=== PATIENT | male | born 1980 | race Caucasian/White ===

== ENCOUNTER 2020-08-18 12:13 | Outpatient (REF) | payer OTHER, SELFPAY ==
[2020-08-18 13:01] LABS: COVID-19 Test Negative (Negative)
== END 2020-08-18 12:14 | disposition home or self-care (01) ==
LOC: HO.LAB 12:13
PROVIDERS: Visit Provider Internal Medicine
DX: Z20.828 Contact with and (suspected) exposure to other viral communicable diseases (principal)
CPT/HCPCS: 87635; C9803

== ENCOUNTER 2020-09-21 07:52 | Outpatient (REF) | payer OTHER, SELFPAY ==
[2020-09-21 08:11] LABS: COVID-19 Test Positive (Negative)
== END 2020-09-21 07:53 | disposition home or self-care (01) ==
LOC: HO.EMPCOV 07:52
PROVIDERS: Visit Provider Internal Medicine
DX: Z20.828 Contact with and (suspected) exposure to other viral communicable diseases (principal)
CPT/HCPCS: 87635; C9803

== ENCOUNTER 2020-12-16 09:15 | Outpatient (REF) | payer OTHER, SELFPAY ==
[2020-12-16 12:30] LABS: Influenza A PCR NEGATIVE (Negative); Influenza B PCR NEGATIVE (Negative); Resp Syncy Virus RNA Qual PCR NEGATIVE (Negative); SARS COV2 PCR INHOUSE NEGATIVE (Negative)
== END 2020-12-16 09:16 | disposition home or self-care (01) ==
LOC: HO.LAB 09:15
PROVIDERS: Visit Provider Nurse Practitioner Family
DX: R09.81 Nasal congestion (principal); Z20.822 Contact with and (suspected) exposure to COVID-19
CPT/HCPCS: 0241U; 36415

== ENCOUNTER 2021-09-06 11:33 | Outpatient (REF) | payer OTHER, SELFPAY ==
[2021-09-06 12:55] LABS: Influenza A PCR NEGATIVE (Negative); Influenza B PCR NEGATIVE (Negative); Resp Syncy Virus RNA Qual PCR NEGATIVE (Negative); SARS COV2 PCR INHOUSE NEGATIVE (Negative)
== END 2021-09-06 11:34 | disposition home or self-care (01) ==
LOC: HO.LNP 11:33
PROVIDERS: Visit Provider Internal Medicine
DX: Z20.822 Contact with and (suspected) exposure to COVID-19 (principal); J02.9 Acute pharyngitis, unspecified
CPT/HCPCS: 0241U

== ENCOUNTER 2021-09-09 11:29 | Outpatient (REF) | payer OTHER, SELFPAY ==
[2021-09-09 12:25] LABS: Influenza A PCR NEGATIVE (Negative); Influenza B PCR NEGATIVE (Negative); Resp Syncy Virus RNA Qual PCR NEGATIVE (Negative); SARS COV2 PCR INHOUSE NEGATIVE (Negative)
== END 2021-09-09 11:30 | disposition home or self-care (01) ==
LOC: HO.LNP 11:29
PROVIDERS: Visit Provider Internal Medicine
DX: Z20.822 Contact with and (suspected) exposure to COVID-19 (principal); R09.81 Nasal congestion
CPT/HCPCS: 0241U

== ENCOUNTER 2021-09-23 14:50 | Outpatient (REF) | payer OTHER, SELFPAY ==
[2021-09-23 15:50] LABS: Influenza A PCR NEGATIVE (Negative); Influenza B PCR NEGATIVE (Negative); Resp Syncy Virus RNA Qual PCR NEGATIVE (Negative); SARS COV2 PCR INHOUSE NEGATIVE (Negative)
== END 2021-09-23 14:51 | disposition home or self-care (01) ==
LOC: HO.LNP 14:50
PROVIDERS: Visit Provider Internal Medicine
DX: Z20.822 Contact with and (suspected) exposure to COVID-19 (principal)
CPT/HCPCS: 0241U

== ENCOUNTER 2022-01-24 12:34 | Outpatient (REF) | payer OTHER, SELFPAY | END 2022-01-24 12:35 | disposition home or self-care (01) | LOC: HO.HMGCLDS 12:34 | PROVIDERS: Visit Provider Internal Medicine | DX: Z13.89 Encounter for screening for other disorder (principal) ==

== ENCOUNTER 2022-01-25 06:49 | Outpatient (REF) | payer OTHER, SELFPAY ==
[2022-01-25 11:33] LABS: MANUAL DIFF FLAG NO
[2022-01-25 11:47] LABS: Basophils Percent Auto 0.6 % (0-2); Eosinophils Absolute Auto 0.1 X10*3/uL (0.0-0.4); Eosinophils Percent Auto 2.8 % (0-4); Hematocrit 42.3 % (42.0-52.0); Hemoglobin 15.2 g/dl (14.0-18.0); Imm Gran Abs Auto 0.03 X10*3/uL (0.00-0.03); Imm Gran Pct Auto 0.6 % (0.0-0.4); Lymphocytes Absolute Auto 1.6 X10*3/uL (1.2-4.9); Lymphocytes Percent Auto 31.5 % (20-40); Mean Corpuscular HGB Conc 35.9 g/dl (31.0-36.0); Mean Platelet Volume 10.2 fL (9.4-12.4); Monocytes Absolute Auto 0.6 X10*3/uL (0.1-1.2); Monocytes Percent Auto 11.2 % (2-11); Neutrophils Absolute Auto 2.7 x10*3/uL (2.0-8.3); Neutrophils Percent Auto 53.3 % (45-73); Platelet Count 160 X10*3/uL (160-400); Red Cell Distribution Width 12.4 % (11.0-16.0)
[2022-02-02 06:02] LABS: Vitamin B6 67.4 ng/mL (2.1-21.7)
== END 2022-01-25 06:50 | disposition home or self-care (01) ==
LOC: HO.HMGCLDS 06:49
PROVIDERS: Visit Provider Internal Medicine
DX: R20.0 Anesthesia of skin (principal); R20.2 Paresthesia of skin
CPT/HCPCS: 36415; 84207; 85025

== ENCOUNTER 2023-01-12 09:18 | Outpatient (REF) | payer OTHER, SELFPAY ==
[2023-01-12 12:15] LABS: Folate 6.8 ng/mL (> or = 4.0); Vitamin B12 376 pg/mL (200-900)
[2023-01-19 15:58] LABS: Vitamin B6 6.5 ng/mL (2.1-21.7)
[2023-01-19 16:28] LABS: Vitamin B1 9 nmol/L (8-30)
[2023-01-20 00:43] LABS: Nicotinamide 44 ng/mL; Vit B3 - Nicotinic Acid <20 ng/mL
== END 2023-01-12 09:19 | disposition home or self-care (01) ==
LOC: HO.HMGCLDS 09:18
PROVIDERS: Visit Provider Internal Medicine
DX: M79.10 Myalgia, unspecified site (principal)
CPT/HCPCS: 36415; 82607; 82746; 84207; 84425; 84591

== ENCOUNTER 2023-06-06 12:42 | Outpatient (REF) | payer OTHER, SELFPAY ==
[2023-06-06 12:55] LABS: Binax Internal Control QC Valid; Binax Now Covid-19 Ag Negative (Negative); Binax Performed by: PAULP
== END 2023-06-06 12:43 | disposition home or self-care (01) ==
LOC: HO.HMGCLDS 12:42
PROVIDERS: Visit Provider Internal Medicine
DX: Z20.822 Contact with and (suspected) exposure to COVID-19 (principal)
CPT/HCPCS: 87811